=== PATIENT | male | born 1960 | race Caucasian/White ===

== ENCOUNTER 2017-05-19 23:47 | Emergency (ER) | payer MEDICARE ==
[~2017-05-19] VITALS: Ht 175.3 cm; Wt 56.4 kg
[~2017-05-19 23:47] MED LIST: ACET-2561 PO; OMEP40CA36 PO; OXYC5TAB72 PO
[2017-05-19 23:49] VITALS: BP 135/98; PULSE 101; RESP 16; O2SAT 99
[2017-05-20 00:45] LABS: BASOPHILS % (AUTO) 0.6 % (0-3); EOSINOPHILS % (AUTO) 0.5 % (0-5); MONOCYTES % (AUTO) 7.8 % (4-12); Mean Corpuscular Hemoglobin 27.4 pg (27.0-35.0); Mean Corpuscular Volume 81.3 fL (81-100); NEUTROPHILS % (AUTO) 79.9 % (40-74); Platelet Count 632 bil/L (150-400)
--- NOTE | 2017-05-20 00:50 | ED.REPORT ---
HPI-Abd Pain M 40 and Over Date of Service May 20, 2017 ED Provider: Orestes Goldsmith MD Pt is a 56 y/o male w/ a hx of perforated gastric ulcer s/p antrectomy with Billroth I reconstruction, GERD, gastritis, presenting to the ED c/o epigastric and LUQ abdominal pain onset 1 week ago. He c/o associated nausea and vomiting for 4 days and states he is unable to keep any PO fluids down today. Pt denies hematemesis, dark or melanotic stool. He states his pain is similar to when he had a perforated gastric ulcer in August 2016 at which time he presented to the ED in hemorrhagic shock requiring exploratory laparotomy, antrectomy with Billroth I reconstruction surgery during admission. His last alcoholic drink was last June. Nursing Notes Stated Complaint: POSSIBLE ULCER Chief Complaint: Male Abdominal Pain Nursing Notes Reviewed: Yes Allergies: Coded Allergies: No Known Drug Allergies (Verified Allergy, Unknown, 05/19/17) Scheduled Omeprazole (Omeprazole) 40 Mg Capsule.dr 40 MG PO BID Scheduled PRN Acetaminophen (Extra Strength Non-Aspirin) 500 Mg Tablet 500 MG PO QID PRN PRN For Pain Ondansetron ODT (Ondansetron ODT) 8 Mg Tab.rapdis 4-8 MG PO TID PRN PRN patrick Polyethylene Glycol 3350 (Miralax) 17 Gm Powd.pack 17 GM PO TID PRN PRN For Constipation oxyCODONE (oxyCODONE) 5 Mg Tablet 5 MG PO Q6H PRN PRN For Moderate Pain General Time Seen by MD: 00:49 Chief Complaint Abdominal pain Hx Obtained From: Patient Arrived By: Walk-in Sudden in Onset?: No Onset Occurred: 1 week ago Symptom Duration: Since onset Progression since Onset: Constant Location: : Epigastric: LUQ Quality: Painful Severity: Current: Moderate Severity: Maximum: Moderate Recent Healthcare: Previous diagnosis Similar Sx Previous: Yes Past Medical History Past Medical History Notes: GI: Dr. Kelly Past Medical History Hx perforated gastric ulcer with presentation of hemorrhagic shock August 2016 s/p exploratory laparotomy, antrectomy with Billroth I reconstruction Meckel's diverticulum Small bowel stricture Anxiety Depression GERD Hiatal hernia Hx alcoholic gastritis Past Surgical History Exploratory laparotomy, antrectomy with Billroth I reconstruction Smoking History Current Every Day Smoker Social History Alcohol Use: Denies alcohol use Ambulatory Status Independent Review of Systems GI: Reports: Abdominal pain, Nausea, Vomiting, Denies: Bloody/tarry stool, Hematemesis, Melena Complete sys rev & neg: except as marked. Physical Exam Initial Vital Signs Vital Signs (First) Date Time Temp Pulse Resp B/P Pulse Ox O2 Delivery O2 Flow Rate FiO2 05/19/17 23:49 36.7 101 16 135/98 99 Room Air Initial VS: Reviewed, Vital signs abnormal Head / Eyes: Atraumatic, Normocephalic Neck: Supple, Full range of motion Extremities: Vascular intact, Neuro intact, No swelling Neurologic: Alert, Oriented, Nonfocal Psychiatric: Mood/affect normal, Behavior normal, Normal thought content General/Constitutional: Awake, Alert, No acute distress, Cooperative, Not toxic appearing Distress / Hydration: Positive: Dehydration moderate Appearance / Presentation: Positive: Uncomfortable Smells strongly of cigarettes Cardiovascular: Regular rhythm, Heart sounds NL, No murmurs Heart Rate / Rhythm: Positive: Tachycardia (mild, rate 101) Abdomen: Atraumatic, Soft, No guarding, No rebound, No distention, No palpable mass Tenderness/Guarding/Rebound: Positive: Tender epigastric (mild) Back: Full range of motion, Painless range of motion ENT: Airway patent Mouth: Positive: Mucous membranes dry Skin: Warm, Dry, Intact Color / Condition: Positive: Skin turgor poor Interpretation & Diagnostics Lab Results Interpretation Result Diagram: 05/20/17 0041 05/20/17 0041 Test 05/20/17 00:41 05/20/17 01:25 White Blood Count 14.1th/mm3 (3.8-10.1) Red Blood Count 5.18mil/mm3 (4.40-5.80) Hemoglobin 14.2g/dL (13.8-17.2) Hematocrit 42.1% (41.0-50.0) Mean Corpuscular Volume 81.3fL (81-100) Mean Corpuscular Hemoglobin 27.4pg (27.0-35.0) Mean Corpuscular Hemoglobin Concent 33.7% (32.0-37.0) Red Cell Distribution Width 18.2% (12.3-15.4) Platelet Count 632bil/L (150-400) Neutrophils (%) (Auto) 79.9% (40-74) Lymphocytes (%) (Auto) 11.0% (14-46) Monocytes (%) (Auto) 7.8% (4-12) Eosinophils (%) (Auto) 0.5% (0-5) Basophils (%) (Auto) 0.6% (0-3) Sodium Level 138mEq/L (134-144) Potassium Level 4.2mEq/L (3.5-5.2) Chloride Level 96mEq/L (97-108) Carbon Dioxide Level 23mmol/L (18-29) Blood Urea Nitrogen 18mg/dL (6-24) Creatinine 0.89mg/dL (0.76-1.27) Estimat Glomerular Filtration Rate 93mL/min (>59) Glucose Level 110mg/dL (60-99) Calcium Level 10.3mg/dL (8.5-10.1) Magnesium Level 2.3mg/dL (1.6-2.6) Total Bilirubin 0.2mg/dL (0.0-1.2) Aspartate Amino Transf (AST/SGOT) 11U/L (0-50) Alanine Aminotransferase (ALT/SGPT) 6U/L (0-44) Alkaline Phosphatase 89U/L (25-150) Total Protein 9.0g/dL (6.4-8.4) Albumin 5.0g/dL (3.4-5.0) Lipase 16U/L (13-60) Hold Urine Received (Received) CT Abd / Pelvis Interpretation Conclusion: 1. No free air, bowel obstruction, or mesenteric inflammation appendix is not identified. No secondary signs of appendicitis. Moderate to large colonic fecal debris, query constipation. 2. CBD dilation 10 -- 11 mm diameter. Gallbladder is distended. No calcified stones or pericholecystic inflammation. Correlate with LFTs and consider ultrasound evaluation if needed. 3. Mild prostate enlargement. Interpreted by Levi Sargent MD Study type: Abdominal CT IV contrast Interpretation / Wet Read by: Interpret - Radiologist Re-Eval/Medical Decision Med Decision/Clinical Course 56-year-old male with a history of severe ulcer disease presents with abdominal pain. He has vomited but there is no blood in it. Labs are unremarkable. CT scan shows a dilated common bile duct but no evidence of stone and the lab does not show any evidence of hepatitis or pancreatitis. There is also increased stool in the colon on CT scan. He will be treated with magnesium citrate and MiraLAX. He will follow up with a new primary doctor or urgent care for further evaluation as needed. I do not suspect that these symptoms are due to ulcer disease at the present. Source of Hx: Old records Time of Eval: 02:44 Re-Evaluation/Progress Note: Pt rechecked. Mildly improved but still experiencing some pain. Discussed CT findings. Informed pt of plan for discharge. Pt understands and agrees with plan for discharge. F/U instructions and RTER warnings given. All questions addressed. Counseled Regarding: Diagnosis, Lab results, Need for follow-up, When/why to return to ED Discharge & Departure Primary Impression: Generalized abdominal pain Additional Impression: Constipation Constipation type: unspecified constipation type Qualified Code: K59.00 - Constipation, unspecified Disposition: Home Vital Signs - All Vital Signs Date Time Temp Pulse Resp B/P Pulse Ox O2 Delivery O2 Flow Rate FiO2 05/19/17 23:49 36.7 101 16 135/98 99 Room Air )( All Prior VS Reviewed: Yes Condition: Improved Patient Instructions: Acute Abdominal Pain (ED), Constipation (ED), High Fiber Diet (ED) Additional Instructions: Your labs are basically normal. Your CT scan shows a little bit of dilation of the bile duct which may indicate a problem with the gallbladder, but the labs do not verify that. Your CT scan also shows constipation. Drink the entire bottle of magnesium citrate and use the MiraLAX 1 capful mixed with 8 ounces of water 2 or 3 times a day as needed for bowel movement. Hydrocodone/ acetaminophen 5/325, one or 2 pills every 4-6 hours as needed for severe pain, # 10 dispensed. Ondansetron 4 mg orally every 6-8 hours as needed for nausea and vomiting, #3 dispensed. Referrals: NOPCP (PCP) Scribe Attestation Portions of this note were transcribed by Blair Alamo. I, Dr. Goldsmith personally performed the history, physical exam and medical decision-making; I reviewed and confirmed the accuracy of the information in the transcribed note. Orestes Goldsmith MD May 20, 2017 00:50 BLAIR ALAMO May 20, 2017 01:03
[2017-05-20] MEDS ORDERED: Ondansetron 2 mg/mL 2 mL Inj IV PRN (01:00)
[2017-05-20] MEDS ORDERED: Pantoprazole 4 mg/mL 10 mL Inj IVPUSH ONE (01:00)
[2017-05-20 01:08] LABS: Magnesium 2.3 mg/dL (1.6-2.6)
[2017-05-20] MEDS ORDERED: 0.9% Sodium Chloride 1,000 ML IV ONE (01:10)
[2017-05-20] MEDS: HYDROmorphone 0.5 mg/0.5 mL iSecure Syringe IVPUSH PRN ×4 (01:24→03:30)
[2017-05-20] MEDS ORDERED: _HYDROcodone/APAP 5-325 mg Tablet PO PRN (02:40)
[2017-05-20] MEDS ORDERED: _Ondansetron ODT 4 mg Tablet PO PRN (02:40)
[2017-05-20] MEDS ORDERED: POLY17PO6 PO (02:50)
[2017-05-20] MEDS ORDERED: ONDA8TAB10 PO (02:50)
[2017-05-20 03:33] VITALS: BP 130/96; PULSE 90; RESP 16; O2SAT 99
--- NOTE | 2017-05-20 08:39 | DRSVH ---
PROCEDURE: CT ABDOMEN AND PELVIS WITH CONTRAST ([id number]) INDICATIONS: abdominal pain TECHNIQUE: After the administration of intravenous contrast, 5 mm thick sections acquired from the diaphragm to the symphysis. 5 mm coronal and sagittal reformats were acquired. For radiation dose reduction, the following was used: automated exposure control, adjustment of mA and/or kV according to patient siz e. COMPARISON: CT abdomen and pelvis 02/18/2016 FINDINGS: Preliminary report by alcohol law enforcement agent radiology Image quality: Excellent. ABDOMEN: Lung bases: Lung bases are clear. Heart size is normal. Solid organs: Liver and spleen are normal in size with hepatic steatosis. Along the inferomedial mar gin of the liver, series 2/image 36, is a 15 mm irregular hypodensity not seen on prior. The focal ar ea of blush enhancement in the left lobe of liver on prior study is unchanged, image 27.. Gallbladde r appears normal. Biliary system is dilated, intrahepatic radicals visualized and distal common bile duct at 10.3 mm diameter. Mild dilatation of the distal pancreatic duct.. Pancreas enhances normall y. No adrenal nodules. Kidneys demonstrate normal size and enhancement, without hydronephrosis. Peritoneum and bowel: Surgical clips are present in the region of the duodenal loop associated with small fluid collection, possible duodenal diverticulum but indeterminate. Bowel loops demonstrate nor mal wall thickness and caliber. The appendix is nonvisualized, no secondary signs of appendicitis see n. Considerable stool throughout the colon, possible constipation. No free fluid or air. Nodes and vessels: No retroperitoneal or mesenteric adenopathy by size criteria. Aorta and inferior vena cava are normal in size. Miscellaneous: No ventral hernias. PELVIS: Genitourinary: Bladder wall thickness is normal. Prostate is enlarged measuring 3.7 x 4.9 cm. Miscellaneous: No inguinal hernias or adenopathy. Bones: No suspicious bony lesions. Levoconvex scoliosis. No vertebral body compression fractures. IMPRESSION: 1. Postoperative changes right upper quadrant, correlate with prior surgical history. 2. Borderline hepatomegaly with hepatic steatosis. No splenomegaly. New subcapsular hypodensity in th e inferior pole of the liver is indeterminate, statistically hepatic cyst or hemangioma. Evaluation b y abdominal ultrasound is suggested. 3. Moderate biliary dilatation, correlate with liver enzymes. 4. Possible constipation. No specific findings to correlate with left upper quadrant pain. Findings are concordant with the preliminary report. Dictated by: Boni Murray M.D. on 05/20/2017 at 8:20 Approved by: Boni Murray M.D. on 05/20/2017 at 8:38
== END 2017-05-20 03:34 | disposition home or self-care (01) ==
LOC: SED 23:47
DX: R10.84 Generalized abdominal pain (principal); K59.00 Constipation, unspecified; F41.9 Anxiety disorder, unspecified; F32.9 Major depressive disorder, single episode, unspecified; K21.9 Gastro-esophageal reflux disease without esophagitis; F17.200 Nicotine dependence, unspecified, uncomplicated
CPT/HCPCS: 36415; 74177; 80053; 83690; 83735; 85025; 96361; 96374; 96375; 99285; J1170; J2405; J7030; Q9967